=== PATIENT | male | born 1950 | race Caucasian/White ===

== ENCOUNTER → 2024-04-26 13:53 | Outpatient (REF) | payer MEDICARE, OTHER, SELFPAY | LOC: HWRAD 13:53 | PROVIDERS: ATTENDING PHYSICIAN Physician Assistant Medical | DX: E04.1 Nontoxic single thyroid nodule (principal); R29.890 Loss of height; M81.0 Age-related osteoporosis without current pathological fracture | CPT/HCPCS: 76536; 77080 ==

== ENCOUNTER 2024-06-05 14:15 | Emergency (ER) | payer MEDICARE, OTHER, SELFPAY ==
[2024-06-05 14:19] VITALS: BP 135/77
--- NOTE | 2024-06-05 16:01 | ED.GENMED ---
History of Present Illness
General
Chief Complaint: Dizziness
Source: patient and spouse
Exam Limitations: none
Time Seen by Provider: 06/05/24 15:47
History of Present Illness
History of Present Illness:
74-year-old male complaining of dizziness. Started last evening. Persisted this morning. Moderately improved at this time. No headache no double vision no numbness tingling or weakness. Has had brief episodes in the past but none recently. No
true vertigo or positional component.
Past History
Past History
ED Past Medical History: GERD, HTN, Hypercholesterolemia, NIDDM and Other (Chronic renal failure)
ED Past Surgical History: Orthopedic, Urological and Other (Peritoneal Catheter)
Review of Systems
Review of Systems
All Other Systems: Not applicable
Constitutional: Denies fever or chills
Respiratory: Reports no symptoms
Cardiac: Reports no symptoms; Denies chest pain or syncope
ABD/GI: Reports no symptoms
Neurological: Denies headache, weakness or numbness
Phy Exam
Physical Exam
Physical Exam:
GENERAL: Alert and oriented in no apparent distress
EYE: Orbits normal.
NECK: Supple, no carotid bruit
CARDIAC: Regular rate and rhythm without any obvious murmurs.
LUNGS: Clear breath sounds,normal
ABDOMEN: Soft, without focal tenderness or distention. Catheter in place.
NEUROLOGICAL: Alert and oriented , extraocular muscles intact. No rotatory horizontal or vertical nystagmus. Cranial nerves II through XII intact. Speech normal. [id number] normal. No drift. Able to ambulate well but a mildly positive
Romberg.
SKIN: Warm and dry, no rash or lesion, no discoloration, skin intact.
MUSCULOSKELETAL: No edema,no deformity.Good color
PSYCH: Normal and appropriate interaction.
Course
Orders/Labs/Results
Orders:
Orders
06/05/24 14:19
EKG [Electrocardiogram (*1)] Urgent
Reason for Study: Vertigo / Dizzy
EKG- Treatment ONCE
06/05/24 16:00
CT Head W/o Iv Contrast Urgent
Comment:
Reason For Exam: Disequilibrium
Cardiac Monitoring- Treatment ONCE
IV Insert/Care/Rem.- Treatment PRN
Pulse Ox/cont/shift [RESP] Stat
Quantity: 1
06/05/24 16:01
Electrocardiogram (*1) Stat
Reason for Study: Other
Other Reason for Exam: neuro symptoms
06/05/24 17:13
Basic Metabolic Panel Urgent
Complete Blood Count/With Diff Urgent
Abnormal Lab Results
06/05/24
17:13
WBC 4.5 L 10^3/uL
(4.8-10.8)
RBC 3.81 L 10^6/uL
(4.70-6.10)
Hgb 11.9 L g/dL
(13.0-18.0)
Hct 33.6 L %
(39.0-52.0)
MCH 31.2 H pg
(27.0-31.0)
Absolute Lymphs (auto) 0.9 L 10^3/uL
(1.2-3.4)
Lymphocytes % 20.0 L %
(20.5-51.1)
Monocytes % 14.3 H %
(1.7-9.3)
BUN 77 H mg/dl
(9-20)
Creatinine 6.8 H* mg/dL
(0.7-1.3)
Glucose 115 H mg/dl
(70-99)
06/05/24 17:13
06/05/24 17:13
Vital Signs
Initial and Last Documented VS:
Initial Vital Signs
Temp Pulse Resp BP Pulse Ox
98.0 F 60 17 135/77 97
06/05/24 14:19 06/05/24 14:19 06/05/24 14:19 06/05/24 14:19 06/05/24 14:19
Last Documented Vital Signs
Temp Pulse Resp BP Pulse Ox
98.0 F 66 13 148/65 99
06/05/24 14:19 06/05/24 17:00 06/05/24 17:00 06/05/24 17:00 06/05/24 17:00
MDM/Problems Addressed
Differential Diagnosis Includes:
Patient describing disequilibrium. Significantly improved since this morning. Ambulating relatively well. No other findings to support acute stroke. Workup in progress.
*Radiology
Radiology exam reviewed: radiology read reviewed (Sinus disease. Otherwise negative)
*Pulse Oximetry
Patient hypoxic: no
*EKG
Interpreted by ED Provider?: Yes
Interpretation: abnormal
Comparison EKG: changes noted
Heart Rate: 63
Rate: normal
Rhythm: sinus and PVC's
Powell: left axis deviation
Interval: first degree heart block
QRS Pattern: normal QRS
Ischemia: no ischemia
*Critical Care Note
Total Time (30-74mins, 75-104mins- exclusive of procedures): Not Applicable
Data Reviewed
Review of Other/Old Records Reveals: Labs, Records, Radiology Studies and Testing
Update Note
Update Note:
1805..... Patient sitting up about to eat a salad with his . In no distress. Neurologic exam is within normal limits. Low suspicion for CVA. Patient with sinus disease ambulated well. Nonfocal exam. However I did discuss honestly with the
patient and that none of the testing here 100% rules out a CVA. Patient was offered admission for observation neurologic exam and possible MRI versus discharge and outpatient follow-up. Risk benefits explained. Patient and have elected
for outpatient follow-up
ED Attending Note
-
Portions of this chart may have been created with voice recognition software.� Occasional wrong word or��sound alike� substitutions may have occurred due to the inherent limitations of voice recognition software.
Discharge Plan
Departure
Patient Disposition: Home (Routine Discharge)
Date of Disposition: 06/05/24
Time of Disposition: 18:04
Patient with high blood pressure during this ER visit?: Yes
Discharge Problem:
Dizziness, Chronic renal failure
Instructions: Dizziness, Nonvertigo, (DC), BLOOD PRESSURE
Prescriptions:
No Action
multivitamin [Daily Multiple] 1 EACH tablet
1 ea PO DAILY
losartan 50 MG tablet
50 mg PO DAILY
sertraline 100 MG tablet
100 mg PO DAILY
fexofenadine 180 MG tablet
180 mg PO PRN PRN (Reason: allergies)
esomeprazole magnesium [Nexium] 40 MG capsule,delayed release(DR/EC)
40 mg PO PRN PRN (Reason: reflux)
rosuvastatin 20 MG tablet
20 mg PO QPM
sitagliptin phos-metformin [Janumet] 1 EACH tablet
1 ea PO BID
hydrocodone-acetaminophen [[place]] 1 EACH tablet
1 ea PO Q6HPRN PRN (Reason: pain) Qty: 40 0RF
Rx Instructions:
Take 1 tablet four times a day, every 6 hours for pain
lorazepam 1 MG tablet
1 mg PO TIDPRN PRN (Reason: pain/spasms) Qty: 40 0RF
aspirin [Evelyn Chewable Aspirin] 81 MG tablet,chewable
81 mg PO HS
Flonase Nasal Seale: 50 MCG Seale.Pump
2 sprays intranasal DAILYPRN PRN (Reason: NASAL ALLERGIES)
diphenhydramine HCl [Banophen] 25 MG capsule
25 mg PO Q4HPRN PRN (Reason: allergy) Qty: 20 0RF
prednisone 50 MG tablet
50 mg PO DAILY Qty: 5 0RF
epinephrine [EpiPen] 0.3 MG/0.3/SYRINGE auto-injector
0.3 mg IM .STAT PRN (Reason: diff breathing) Qty: 1 0RF
Referrals:
Dayana Sands PA-C [Family Provider] - Follow up in 2-3 days
Activity Restrictions/Additional Instructions:
As we discussed, return immediately with any new neurologic symptoms
Interventions
Interventions:
*Risk Screen - Suicide Last Done: 06/05/24 16:54
*General Assessment Last Done: 06/05/24 16:54
*Neglect/Abuse Screening Last Done: 06/05/24 16:54
ED- Fall Risk Assessment Last Done: 06/05/24 16:54
*ED COVID-19 Vaccine History Last Done: 06/05/24 16:54
ED- Neurological Assessment Last Done: 06/05/24 16:54
ED- Cardiac Assessment Last Done: 06/05/24 16:54
ED Swallowing Screen Last Done: 06/05/24 16:54
Discharge Date and Time
Print Language: WELSH
[2024-06-05 16:54] VITALS: BMI 27.6
[2024-06-05 16:55] VITALS: BP 132/64
[2024-06-05 17:00] VITALS: BP 148/65
[2024-06-05 17:20] LABS: % Basophils 0.9 % (0-2); % Eosinophils 4.2 % (0-6); % Immature Granulocytes 0.2 % (0-0.5); % Monocytes 14.3 % (1.7-9.3); % Neutrophils 60.4 % (42.2-75.2); Absolute Eosinophils 0.2 10^3/uL (0-0.7); Absolute Lymphocytes 0.9 10^3/uL (1.2-3.4); Absolute Monocytes 0.6 10^3/uL (0.1-0.6); Absolute Neutrophils 2.7 10^3/uL (1.4-6.5); Hematocrit 33.6 % (39.0-52.0); Hemoglobin 11.9 g/dL (13.0-18.0); Mean Corp Hgb Conc. 35.4 g/dL (33.0-37.0); Mean Corpuscular Hgb 31.2 pg (27.0-31.0); Mean Corpuscular Volume 88.2 fL (80.0-94.0); Mean Platelet Volume 10.1 fL (7.4-10.4); Nucleated Red Blood Cells % 0 % (-); Platelet Count 183 10^3/uL (130-400); Red Blood Cell Count 3.81 10^6/uL (4.70-6.10); Red Cell Dist. Width 14.1 % (11.5-14.5); White Blood Cell Count 4.5 10^3/uL (4.8-10.8)
[2024-06-05 17:42] LABS: Blood Urea Nitrogen 77 mg/dl (9-20); Calcium 9.7 mg/dl (8.4-10.2); Carbon Dioxide 27 mmol/L (22-30); Chloride 102 mmol/L (98-107); Estimated Creatinine Clearance 9 ml/min; Glucose 115 mg/dl (70-99); Potassium 4.8 mmol/L (3.5-5.1); Sodium 141 mmol/L (135-145); eGFR 7.92
[2024-06-05 18:11] VITALS: BP 149/85
== END 2024-06-05 18:25 | disposition home or self-care (01) ==
LOC: EMR 14:15
PROVIDERS: EMERGENCY PHYSICIAN Emergency Medicine; FAMILY PHYSICIAN Physician Assistant Medical
DX: R42 Dizziness and giddiness (principal); I12.9 Hypertensive chronic kidney disease with stage 1 through stage 4 chronic kidney disease, or unspecified chronic kidney disease; E11.22 Type 2 diabetes mellitus with diabetic chronic kidney disease; N18.9 Chronic kidney disease, unspecified; K21.9 Gastro-esophageal reflux disease without esophagitis; E78.00 Pure hypercholesterolemia, unspecified
CPT/HCPCS: 99284; 70450; 80048; 85025; 93005

== ENCOUNTER → 2025-09-18 14:40 | Outpatient (REF) | payer MEDICARE, OTHER, SELFPAY | LOC: PAVMRI 14:40 | PROVIDERS: ATTENDING PHYSICIAN Orthopaedic Surgery; FAMILY PHYSICIAN Physician Assistant Medical | DX: M79.641 Pain in right hand (principal) | CPT/HCPCS: 73218 ==